=== PATIENT | female | born 1990 | race Caucasian/White ===

== ENCOUNTER 2018-01-07 15:04 | Outpatient (REF) | payer BC, SELFPAY ==
--- NOTE | 2018-01-07 11:00 | PAPFT_PTH ---
PATIENT: Jericho Mata LOC: [facility] U#:[id number] AGE/SX: 27/F ROOM: RE01/07/[address]: RAMU Barrow : 1990 BED: DIS: 01/07/2018 SPEC #: [id number] RECD: 01/07/18 17:55 STATUS: PAULA REStanely #: [id number] ADRIANA: 01/07/18 11:[address]: Sharron Yeung DEPT: [facility] Cytology RECD BY: Tamera Hernandez ENTERED: 01/07/18 17:55 SP TYPE: PAPFT OTHR DR: Hannah Sandoval V Tissues: 1 - CX/ENDOCX FOR PAP SMEARS Procedures: PAP THIN PREP/[facility] Screening Comments: [id number]
== END 2018-01-07 15:24 ==
LOC: LBN 15:04
PROVIDERS: PCP Family Medicine; Visit Provider Nurse Practitioner Family
DX: Z12.4 Encounter for screening for malignant neoplasm of cervix (principal)
CPT/HCPCS: 88142

== ENCOUNTER 2020-02-06 16:16 | Outpatient (REF) | payer BC, SELFPAY ==
--- NOTE | 2020-02-06 16:00 | PAPFT_PTH ---
PATIENT: Jericho Mata LOC: [facility] U#:[id number] AGE/SX: 29/F ROOM: RE02/06/[address]: RAMU Barrow : 1990 BED: DIS: 02/06/2020 SPEC #: [id number] RECD: 02/06/20 16:21 STATUS: PAULA REStanley #: [id number] ADRIANA: 02/06/20 16:[address]: Sharron Yeung DEPT: [facility] Cytology RECD BY: Tamera Hernandez ENTERED: 02/06/20 16:21 SP TYPE: PAPFT OTHR DR: Hannah Sandoval V Tissues: 1 - CX/ENDOCX FOR PAP SMEARS Procedures: PAP THIN PREP/[facility] Screening Comments: [phone] ([facility])
== END 2020-02-06 16:36 ==
LOC: LBN 16:16
PROVIDERS: PCP Family Medicine; Visit Provider Nurse Practitioner Family
DX: Z12.4 Encounter for screening for malignant neoplasm of cervix (principal)
CPT/HCPCS: 88142

== ENCOUNTER 2020-03-20 10:39 | Outpatient (CLI) | payer BC, SELFPAY ==
--- NOTE | 2020-03-20 | DI.RAD_ITS ---
EXAM: XR FOOT LT COMPLETE CLINICAL HISTORY: LT FOOT PAIN M79.672 LOG FELL ON FOOT, MIDFOOT PAIN WITH AMBULATION,. TECHNIQUE: 2D digital imaging was performed. COMPARISON: No exams were available for comparison FINDINGS: There is no evidence of fracture nor diastasis of the Lisfranc joint.. No osseous lesions nor erosio ns. Bone density normal. No osseous lesions. No radiopaque foreign body. IMPRESSION: No fracture evident. DATA REPOSITORY: RADIATION DOSE DELIVERED:
--- NOTE | 2020-03-20 17:46 | DI.VRAD_ITS ---
PROCEDURE INFORMATION: Exam: XR Left Foot Complete Exam date and time: 03/20/2020 5:08 PM Age: 29 years old Clinical indication: Other: Lt foot pain m79.672 log fell on foot, midfoot pain with ambulation TECHNIQUE: Imaging protocol: XR Left foot. Views: 3 or more views. COMPARISON: No relevant prior studies available. FINDINGS: Bones/joints: Normal. Soft tissues: Normal. IMPRESSION: No evidence for fracture. Dictated and Authenticated by: Shannan Watson MD. Ordering:INOCENCIA Domínguez MD
== END 2020-03-20 10:59 ==
PROVIDERS: PCP Family Medicine; Visit Provider Nurse Practitioner Family
DX: M79.672 Pain in left foot (principal)
CPT/HCPCS: 73630

== ENCOUNTER 2021-04-06 13:49 | Outpatient (REF) | payer BC, SELFPAY ==
[2021-04-08 09:55] LABS: COVID-19 RT-PCR UVMMC Result Negative (Negative)
== END 2021-04-06 13:50 | disposition home or self-care (01) ==
LOC: LBN 13:49
PROVIDERS: PCP Family Medicine; Visit Provider Physician Assistant Medical
DX: Z20.822 Contact with and (suspected) exposure to COVID-19 (principal); J02.9 Acute pharyngitis, unspecified
CPT/HCPCS: U0003

== ENCOUNTER 2021-07-15 12:58 | Outpatient (REF) | payer BC, SELFPAY ==
[2021-07-17 12:01] LABS: COVID-19 RT-PCR UVMMC Result Negative (Negative)
== END 2021-07-15 12:59 | disposition home or self-care (01) ==
LOC: NCHCN 12:58
PROVIDERS: PCP Family Medicine; Visit Provider Physician Assistant
DX: Z20.822 Contact with and (suspected) exposure to COVID-19 (principal)
CPT/HCPCS: U0003

== ENCOUNTER 2022-02-21 13:48 | Outpatient (REF) | payer BC, SELFPAY ==
[2022-02-21 16:27] LABS: Hemoglobin A1C 5.1 % (<5.7)
[2022-02-21 16:40] LABS: Calculated LDL 118 mg/dL (<100); Cholesterol 180 mg/dL (<200); HDL Cholesterol 37 mg/dL (40-60); Triglyceride 128 mg/dL (<150)
[2022-02-21 17:03] LABS: FREE T4 1.07 ng/dL (0.76-1.46)
== END 2022-02-21 13:49 | disposition home or self-care (01) ==
LOC: NCHCN 13:48
PROVIDERS: PCP Family Medicine; Visit Provider Family Medicine
DX: Z00.00 Encounter for general adult medical examination without abnormal findings (principal)
CPT/HCPCS: 80061; 83036; 84439; 84443

== ENCOUNTER 2024-04-07 16:58 | Outpatient (REF) | payer BC, SELFPAY ==
--- NOTE | 2024-04-07 10:00 | PAPFT_PTH ---
PATIENT: Jericho Mata LOC: [facility] U#:[id number] AGE/SX: 33/F ROOM: RE04/07/[address]: Hannah Sandoval V : 1990 BED: DIS: 04/07/2024 SPEC #: [id number] RECD: 04/08/24 13:14 STATUS: PAULA REStanley #: [id number] ADRIANA: 04/07/24 10:[address]: Hannah Sandoval V DEPT: REPLACED BY [facility] Cytology RECD BY: Tamera Hernandez Tissues: 1 - CX/ENDOCX FOR PAP SMEARS Procedures: PAP THIN PREP/[facility] Screening HPV DNA PROBE Comments: [id number] (HPV 16 & 18/45)
== END 2024-04-07 16:59 | disposition home or self-care (01) ==
LOC: NCHCN 16:58
PROVIDERS: PCP Family Medicine; Visit Provider Family Medicine
DX: Z12.4 Encounter for screening for malignant neoplasm of cervix (principal)
CPT/HCPCS: 88142; 87624

== ENCOUNTER 2024-12-15 04:13 | Outpatient (CLI) | payer BC, SELFPAY ==
[2024-12-15 16:13] LABS: HCT 40.7 % (36.0-46.0); HGB 13.9 g/dL (11.2-15.7)
[2024-12-15 16:41] LABS: ALT 36 U/L (14-59); AST 13 U/L (15-37); Albumin 3.8 g/dL (3.4-5.0); Alkaline Phosphatase 81 U/L (46-116); Anion Gap 9.0 mmol/L (3-11); BUN 12 mg/dL (7-18); Bilirubin, Total 0.2 mg/dL (0.2-1.0); CO2 28.0 mmol/L (21.0-32.0); Calcium 9.1 mg/dL (8.5-10.1); Chloride 105 mmol/L (98-107); Estimated GFR 86.03 (mL/min/1.73m2); Glucose 93 mg/dL (74-106); Potassium 4.2 mmol/L (3.5-5.1); Sodium 142 mmol/L (136-145); Total Protein 7.4 g/dL (6.4-8.2)
[2024-12-15 17:38] LABS: Ferritin 61 ng/mL (8-252); TSH (W/Ref FT4) 2.44 uIU/mL (0.36-3.74)
[2024-12-15 18:20] LABS: Iron 51 ug/dL (50-170)
== END 2024-12-15 04:14 | disposition home or self-care (01) ==
LOC: LBO 04:13
PROVIDERS: PCP Family Medicine; Visit Provider Family Medicine
DX: G47.61 Periodic limb movement disorder (principal)
CPT/HCPCS: 36415; 80053; 82728; 83540; 84443; 85014; 85018